=== PATIENT | male | born 1955 | race Caucasian/White ===

== ENCOUNTER 2017-12-13 07:12 | Observation (INO) | payer OTHER ==
[2017-12-12 10:50] LABS: BASOPHILS # (AUTO) 0.1 (0.0-0.1); BASOPHILS % 0.8 % (0.0-1.0); EOSINOPHILS # (AUTO) 0.1 (0.0-0.4); HEMATOCRIT 43.6 % (38.2-49.6); HEMOGLOBIN 14.9 g/dL (14.0-18.0); LYMPHOCYTES # (AUTO) 1.6 (1.0-3.2); LYMPHOCYTES % 24.3 % (18.0-39.1); MEAN CORPUSCULAR HEMOGLOBIN 30.4 pg (28-32); MEAN CORPUSCULAR HGB CONC 34.2 g/dL (31-35); MONOCYTES # (AUTO) 0.7 (0.2-0.8); MONOCYTES % 10.7 % (4.4-11.3); NEUTROPHILS % 61.9 % (38.7-80.0); PLATELET COUNT 183 x10e3/uL (140-360); RED CELL DISTRIBUTION WIDTH 11.8 % (11.7-14.4)
[2017-12-12 11:01] LABS: INR 1.08; PROTHROMBIN TIME 13.2 seconds (11.9-14.5)
[2017-12-12 11:02] LABS: PARTIAL THROMBOPLASTIN TIME 26.4 seconds (23.8-35.5)
[2017-12-12 11:08] LABS: ANION GAP 12.1 mmol/L (8-16); BLOOD UREA NITROGEN 17 mg/dL (7-26); BUN/CREATININE RATIO 23 (6-25); CALCIUM 9.3 mg/dL (8.4-10.2); CARBON DIOXIDE 25 mmol/L (22-29); CHLORIDE 107 mmol/L (98-107); CREATININE, SERUM 0.75 mg/dL (0.72-1.25); EST GLOMERULAR FILTRATION RATE > 60 ML/MIN (60-); GLUCOSE 105 mg/dL (74-118); POTASSIUM 4.1 mmol/L (3.5-5.1); SODIUM 140 mmol/L (136-145)
--- NOTE | 2017-12-12 12:16 | Diagnostic Imaging Report ---
PROCEDURE: Frontal and lateral views of the chest. COMPARISON: None. INDICATIONS: PREOPERATIVE CHEST XRAY FOR CERVICAL SPINE SURGERY FINDINGS: Lines/tubes: None. Lungs: The lungs are well inflated and clear. There is no evidence of pneumonia or pulmonary edema. Pleura: There is no pleural effusion or pneumothorax. Heart and mediastinum: The heart and the mediastinum are normal. Bones: No acute bony abnormality. IMPRESSION: No acute radiographic abnormality. Dictated by: Frankie Gastelum M.D. on 12/12/2017 at 12:16 Electronically approved by: Frankie Gastelum M.D. on 12/12/2017 at 12:16
[~2017-12-13] VITALS: Ht 167.6 cm; Wt 66.7 kg
[~2017-12-13 07:12] MED LIST: BACITRACIN 50,000 UNIT VIAL ONE; BUPIVACAINE 0.5%/EPI 30 ML SDV INJ ONE; GELATIN SPONGE SZ 100 ONE; THROMBIN FOR SOLN 5,000 UNIT VIAL ONE; [UNRECOGNIZED DRUG - OTHER]
--- OUTSIDE RECORDS SUMMARY | 2017-12-13 07:15 | XMS REPORT ---
Author Author [facility] Address Unknown Phone Unavailable Care Team Providers [place] [employer] Name Role Phone ZEKE CALLEJAS Unavailable Unavailable Problems This patient has no known problems. Allergies, Adverse Reactions, Alerts This patient has no known allergies or adverse reactions. Medications This patient has no known medications. Results Test Description Test Time Test Comments Text Results Atomic Results Result Comments CHEST 2 VIEWS [place] [address] Patient Name: EVELIO ENRIQUE MR # : [id number] : 1955 Age/Sex: 62/M Req #: [id number] Adm Physician: Ordered by: ZEKE CALLEJAS MD Report #: [id number] Location: OR Room/Bed: Procedure: [id number] DX/CHEST 2 VIEWS Exam Date: 12/12/17 Exam Time: 1115 REPORT STATUS: Signed PROCEDURE: Frontal and lateral views of the chest. COMPARISON: None. INDICATIONS: PREOPERATIVE CHEST XRAY FOR CERVICAL SPINE SURGERY FINDINGS: Lines/tubes: None. Lungs : The lungs are well inflated and clear. There is no evidence of pneumonia or pulmonary edema. Pleura: There is no pleural effusion or pneumothorax. Heart and mediastinum: The heart and the mediastinum are normal. Bones: No acute bony abnormality. IMPRESSION: No acute radiographic abnormality. Dictated by: Otilio Lazar M.D. on 2017 at 12:16 Electronically approved by: Otilio Lazar M.D. on 2017 at 12:16 Dictated By: OTILIO LAZAR MD 1216 Transcribed By: MATT on 12/12/17 1216 COPY TO: ZEKE CALLEJAS MD
[2017-12-13] MEDS ORDERED: CEFAZOLIN SOD 1 GM VIAL ONE (08:00)
[2017-12-13] MEDS ORDERED: METAMUCIL POWD174 GM PO (08:06)
[2017-12-13] MEDS: LACTATED RINGER'S 1,000 ML IV SCH ×2 (11:37→19:57)
[2017-12-13] MEDS ORDERED: ACETAMINOPHEN 325 MG TAB PO PRN (11:45)
[2017-12-13] MEDS ORDERED: CEPACOL SORE THROAT LOZENGES PO PRN (11:45)
[2017-12-13] MEDS ORDERED: HYDROMORPHONE 2MG/ML INJ IV PRN (11:45)
[2017-12-13] MEDS ORDERED: MAGNESIUM/ALUMINUM/SIMETHICONE 30 ML UDC PO PRN (11:45)
[2017-12-13] MEDS ORDERED: ONDANSETRON HCL INJ 2 MG/ML VIAL IV PRN (11:45)
[2017-12-13] MEDS ORDERED: MORPHINE SULFATE 5 MG/ML VIAL IM PRN (11:45)
[2017-12-13] MEDS ORDERED: ZOLPIDEM TARTRATE 5 MG TAB PO PRN (11:45)
[2017-12-13] MEDS ORDERED: PROMETHAZINE HCL (IM) 25 MG/ML VIAL IM PRN (11:45)
[2017-12-13] MEDS ORDERED: FENTANYL CITRATE/PF 100MCG/2 ML INJ ONE ×2 (11:53→18:54)
[2017-12-13 12:36] VITALS: BP 156/76
[2017-12-13 12:57] VITALS: BP 156/76
[2017-12-13] MEDS: CARISOPRODOL 350 MG TAB PO PRN ×2 (13:06→21:37)
[2017-12-13] MEDS ORDERED: CEFAZOLIN SOD 1 GM/NS 50ML 50 ML IV SCH (14:00)
--- NOTE | 2017-12-13 14:33 | Operative Report ---
DATE OF PROCEDURE: December 13, 2017 PREOPERATIVE DIAGNOSIS: C5-6 spondylosis with myelopathy, M47.12. POSTOPERATIVE DIAGNOSIS: C5-6 spondylosis with myelopathy, M47.12. PROCEDURE: 1. C5-6 anterior cervical diskectomy and microsurgical osteophyte resection and allograft fusion, 66412. 2. Preparation of [employer] cortical cancellous allograft, 97594. 3. C5-6 anterior cervical plating with Synthes Zero-Profile Natural plate, 94531. ANESTHESIA: General. INDICATIONS: The patient is a 62-year-old man who presents with C5-6 spondylosis and severe spinal stenosis and myelopathy and was taken to the operating room for anterior cervical decompression and fusion. PROCEDURE: After the induction of general anesthesia, the patient was placed on the operating table in supine position. The right side of the neck was prepped and draped in sterile fashion. The fluoroscopic C-arm was positioned in cross-table lateral orientation. A transverse incision was created on the right side of the neck, superimposed on the C5-6 disk space as determined by fluoroscopy. The platysma was divided in line with the incision. A subplatysmal dissection was carried out. An avascular plane of dissection was developed medial to the sternocleidomastoid muscle and was followed medial to the carotid sheath to the anterior border of the vertebral bodies. The attachments of longus coli muscles to the anterior lateral aspects of vertebral bodies of C5 and C6 were divided. The anterior longitudinal ligament was resected. [place] posts were inserted into C5 and C6, and the [place] distractor was used to distract the disk space. The anterior annuli of the disks were incised with a number 11 blade, and the contents of the disk were thoroughly evacuated with angled curets and pituitary rongeurs. The posterior osteophytes were meticulously drilled with a 2 mm cutting bur on a high-speed drill until they were completely removed. The posterior annulus of the disk, herniated disk material, and the posterior longitudinal ligament were resected layer by layer until the dura was fully exposed and decompressed. The medial aspects of the uncinate processes were resected bilaterally to further expose any compressed origins of the corresponding nerve roots. After satisfactory decompression had been achieved, the endplates were prepared for fusion. A piece of MTF cortical cancellous allograft was cut to the size and shape of the disk space, and the disk space was sized and found to be 8 mm in height. A piece of MTF cortical cancellous allograft measuring 8 mm in thickness was selected and prepared in saline and loaded onto a Synthes ZPN plate. The construct was inserted into the C5-6 disk space under lateral fluoroscopic guidance and tamped in place until the anterior margin of the plate was flush with the anterior margin of vertebral bodies. The plate was then screwed to the endplates of C5 and C6 with 2 pairs of 14 mm screws. All screws were locked. An excellent construct was obtained. The wound was copiously irrigated with Bacitracin solution. Meticulous hemostasis was secured. The retractor was removed. The platysma was closed with 3-0 Vicryl sutures. The skin was closed with 4-0 Monocryl sutures in subcuticular fashion. Steri-Strips and a dressing were applied. The patient was awakened, extubated and taken to the postanesthesia care unit in stable condition. No intraoperative complications were encountered. Estimated blood loss was 10 mL. Job#: [id number] MARGARITA
[2017-12-13] MEDS: OXYCODONE/ACETAMINOPHEN 5-325 1 EACH TABLET PO PRN ×2 (15:25→21:37)
[2017-12-13 16:34] VITALS: BP 142/77
[2017-12-13] MEDS: CEFAZOLIN SOD 1 GM VIAL IV SCH (16:44)
[2017-12-13] MEDS ORDERED: CEFAZOLIN SOD 1 GM VIAL IV SCH (17:00)
[2017-12-13] MEDS ORDERED: NEOSTIGMINE 5 MG/5ML SYR ONE (18:33)
[2017-12-13] MEDS ORDERED: GLYCOPYRROLATE INJ 1MG/ 5 ML SYR ONE (18:33)
[2017-12-13] MEDS ORDERED: DEXAMETHASONE SOD PHOS INJ 4 MG/ML VIAL ONE (18:33)
[2017-12-13] MEDS ORDERED: ROCURONIUM BROMIDE 10 MG/ML 5ML VIAL ONE (18:33)
[2017-12-13] MEDS ORDERED: ONDANSETRON HCL INJ 2 MG/ML VIAL ONE (18:33)
[2017-12-13] MEDS ORDERED: PROPOFOL IV EMULSION 10 MG/ML 20 ML VIAL ONE (18:33)
[2017-12-13] MEDS ORDERED: ACETAMINOPHEN 1000 MG/100 ML IV ONE (18:33)
[2017-12-13] MEDS ORDERED: SEVOFLURANE INHAL SOLN 250 ML PEN BTL ONE (18:33)
[2017-12-13] MEDS ORDERED: LIDOCAINE HCL 2% LOCAL INJ 5 ML SDV VIAL INJ ONE (18:33)
[2017-12-13] MEDS ORDERED: MIDAZOLAM HCL 2 MG/2 ML VIAL ONE (18:54)
[2017-12-13 20:00] VITALS: BP 125/63
[2017-12-14] VITALS: BP 121/63
[2017-12-14] MEDS: OXYCODONE/ACETAMINOPHEN 5-325 1 EACH TABLET PO PRN ×2 (01:20→05:45)
[2017-12-14] MEDS: CARISOPRODOL 350 MG TAB PO PRN (01:20)
[2017-12-14] MEDS: CEFAZOLIN SOD 1 GM VIAL IV SCH ×2 (01:20→09:00)
[2017-12-14 04:00] VITALS: BP 133/61
[2017-12-14] MEDS: LACTATED RINGER'S 1,000 ML IV SCH (04:17)
--- NOTE | 2017-12-14 06:40 | Diagnostic Imaging Report ---
C-SPINE 2 VIEWS AP LATERAL Comparison: None Clinical history: Status post surgery Findings: Status post C5-6 integrated intervertebral device for cervical fusion. Inferior posterior endplate of C5 is irregular, presumably postsurgical. Moderate C6-7 degenerative changes. Straightening of the normal cervical lordosis with 1 to 2 mm retrolisthesis of C4. Mild prevertebral and neck soft tissue swelling and gas. Impression: Postsurgical changes status post C5-6 fusion, as above. Signed by: Dr Nancy Montgomery MD on 12/14/2017 6:37 AM
[2017-12-14 08:08] VITALS: BP 133/61
[2017-12-14 08:29] VITALS: BP 125/68
== END 2017-12-14 09:26 | disposition home or self-care (01) ==
LOC: OR 07:12 → IMCU 12:51
PROVIDERS: ADMIT Neurological Surgery; ATTEND Neurological Surgery
DX: M47.12 Other spondylosis with myelopathy, cervical region (principal)
CPT/HCPCS: 20931; 22551; 22845; 36415; 71046; 72040; 77003; 80048; 85025; 85610; 85730; 86850; 86900; 88304; 93005; C1713 ×2; C9359; G0378 ×2; J0690 ×2; J1100; J2001; J2250; J2270; J2405

== ENCOUNTER → 2018-01-08 | Outpatient (CLI) | payer OTHER ==
[~2018-01-08] MED LIST changes: -BACITRACIN 50,000 UNIT VIAL ONE; -BUPIVACAINE 0.5%/EPI 30 ML SDV INJ ONE; -GELATIN SPONGE SZ 100 ONE; +METAMUCIL POWD174 GM PO; -THROMBIN FOR SOLN 5,000 UNIT VIAL ONE
--- NOTE | 2018-01-08 10:40 | Diagnostic Imaging Report ---
PROCEDURE: C-SPINE AP AND LAT WITH FLEX AND EXT COMPARISON: Patients [facility], DX, C-SPINE 2 VIEWS AP \T\ LATERAL, 12/14/2017, 6:18. INDICATIONS: POST CERVICAL SPINE SURGERY FINDINGS: C1 through C7 are visualized on the lateral view. Mild reversal of the cervical lordosis may be related muscle spasm or positioning. The patient is status post anterior fusion of C5-C6 with metallic disc spacer present. Postsurgical changes of the inferior C5 endplate. Degenerative changes at C6-C7 are stable. Flexion and extension views demonstrate no change in alignment. The prevertebral soft tissues are not swollen. CONCLUSION: Fusion of C5-C6 without evidence of subluxation. Jose Sosa D.O. Dictated by: Jose Sosa D.O. on 01/08/2018 at 10:39 Electronically approved by: Jose Sosa D.O. on 01/08/2018 at 10:39
== END ==
LOC: RAD 07:52
PROVIDERS: ATTEND Neurological Surgery
DX: M50.20 Other cervical disc displacement, unspecified cervical region (principal); Z98.1 Arthrodesis status
CPT/HCPCS: 72050

== ENCOUNTER 2018-06-18 12:28 | Observation (INO) | payer OTHER ==
[~2018-06-18] VITALS: Ht 172.7 cm; Wt 67.2 kg
[2018-06-18] MEDS ORDERED: KETOROLAC TROMETHAMINE 30 MG/ML VIAL IV STA (12:30)
[2018-06-18] MEDS ORDERED: SODIUM CHLORIDE 0.9% 1000ML 1,000 ML IV STA (12:30)
[2018-06-18] MEDS ORDERED: MORPHINE SULFATE INJ 4 MG/ML INJ IV STA (12:30)
[2018-06-18] MEDS ORDERED: ONDANSETRON HCL INJ 2 MG/ML VIAL IV STA (12:30)
[2018-06-18 14:07] LABS: BASOPHILS # (AUTO) 0.1 (0.0-0.1); BASOPHILS % 0.8 % (0.0-1.0); EOSINOPHILS % 0.4 % (0.0-6.0); HEMATOCRIT 37.5 % (38.2-49.6); HEMOGLOBIN 13.3 g/dL (14.0-18.0); LYMPHOCYTES # (AUTO) 1.1 (1.0-3.2); LYMPHOCYTES % 13.4 % (18.0-39.1); MEAN CORPUSCULAR HEMOGLOBIN 30.4 pg (28-32); MEAN CORPUSCULAR HGB CONC 35.5 g/dL (31-35); MEAN CORPUSCULAR VOLUME 85.8 fL (81-99); MONOCYTES # (AUTO) 0.7 (0.2-0.8); MONOCYTES % 8.6 % (4.4-11.3); NEUTROPHILS # (AUTO) 6.5 (2.1-6.9); NEUTROPHILS % 76.4 % (38.7-80.0); PLATELET COUNT 192 x10e3/uL (140-360); RED BLOOD COUNT 4.37 x10e6/uL (4.3-5.7); RED CELL DISTRIBUTION WIDTH 11.6 % (11.7-14.4)
--- NOTE | 2018-06-18 14:26 | Diagnostic Imaging Report ---
EXAM: CT Abdomen and Pelvis WITHOUT contrast INDICATION: Right flank pain. Kidney stone. COMPARISON: None. TECHNIQUE: Abdomen and pelvis were scanned utilizing a multidetector helical scanner from the lung base to the pubic symphysis without administration of IV contrast. Absence of intravenous contrast decreases sensitivity for detection of focal lesions and vascular pathology. Coronal and sagittal reformations were obtained. Routine protocol was performed. IV CONTRAST: None. ORAL CONTRAST: Water RADIATION DOSE: Total DLP: 584.57 mGy*cm Estimated effective dose: (DLP x 0.015 x size factor) mSv COMPLICATIONS: None FINDINGS: LINES and TUBES: None. LOWER THORAX: Ill-defined groundglass densities in the left lower lung could be due to a resolving pneumonia. HEPATOBILIARY: No focal hepatic lesions. No biliary ductal dilation. GALLBLADDER: No radio-opaque stones or sludge. No wall thickening. SPLEEN: Calcified granuloma in the spleen. PANCREAS: No focal masses or ductal dilatation. ADRENALS: No adrenal nodules KIDNEYS/URETERS: 7 mm obstructing stone in the proximal right ureter with proximal right hydroureter and hydronephrosis. There is right-sided perinephric fat stranding consistent with obstruction. No left renal stones are seen. No cystic or solid mass lesions. GI TRACT: No abnormal distention, wall thickening, or evidence of bowel obstruction. Scattered diverticulosis without evidence of diverticulitis. PELVIC ORGANS/BLADDER: Unremarkable. LYMPH NODES: No lymphadenopathy. VESSELS: Scattered vascular calcification. PERITONEUM / RETROPERITONEUM: No free air or fluid. BONES: Unremarkable. SOFT TISSUES: Unremarkable. IMPRESSION: 1. 7 mm obstructing stone in the proximal right ureter with proximal right hydroureter and hydronephrosis. There is right-sided perinephric fat stranding consistent with obstruction. No left renal stones are seen. Signed by: Dr. Pardeep Jimenez M.D. on 06/18/2018 2:23 PM
[2018-06-18 14:29] LABS: ALANINE AMINOTRANSFERASE 19 IU/L (0-55); ALBUMIN 3.7 g/dL (3.5-5.0); ALBUMIN/GLOBULIN RATIO 1.3 (0.8-2.0); ALKALINE PHOSPHATASE 73 IU/L (40-150); ANION GAP 12.6 mmol/L (8-16); BLOOD UREA NITROGEN 20 mg/dL (7-26); BUN/CREATININE RATIO 24 (6-25); CALCIUM 8.7 mg/dL (8.4-10.2); CARBON DIOXIDE 21 mmol/L (22-29); CHLORIDE 110 mmol/L (98-107); CREATININE, SERUM 0.84 mg/dL (0.72-1.25); EST GLOMERULAR FILTRATION RATE > 60 ML/MIN (60-); GLUCOSE 107 mg/dL (74-118); LIPASE 19 U/L (8-78); POTASSIUM 3.6 mmol/L (3.5-5.1); SODIUM 140 mmol/L (136-145)
[2018-06-18] MEDS ORDERED: MORPHINE SULFATE 2 MG/ML SYR IV PRN (15:15)
[2018-06-18] MEDS ORDERED: ONDANSETRON HCL INJ 2 MG/ML VIAL IV PRN (15:15)
[2018-06-18] MEDS: CEFTRIAXONE SOD 1 GM VIAL IV SCH (16:01)
[2018-06-18 17:39] VITALS: BP 147/67
[2018-06-18] MEDS: SODIUM CHLORIDE 0.9% 1000ML 1,000 ML IV SCH ×2 (17:40→23:14)
--- NOTE | 2018-06-18 17:50 | Consultation ---
DATE OF CONSULTATION: June 18, 2018 UROLOGY CONSULTATION REFERRING PHYSICIAN: Consultation was called by Dr. Perry in the emergency room. CHIEF UROLOGIC COMPLAINT/REASON FOR CONSULTATION: Kidney stone. HISTORY OF PRESENT ILLNESS: Mr. Landry is a very pleasant 63-year-old male admitted into the hospital with acute sharp severe right-sided flank pain. He denied having previous pain like this, denied dysuria, denied gross hematuria. Denied fevers, no chills. PAST MEDICAL HISTORY: Notable for back surgery, BPH. MEDICATIONS: Please see MAR. ALLERGIES: NKDA. SOCIAL HISTORY: Denied smoking or drinking. FAMILY HISTORY: Denied urologic stones. No malignancies. REVIEW OF SYSTEMS: Noncontributory other than problems mentioned above for 12 organ systems. PHYSICAL EXAMINATION: GENERAL: An elderly male in no acute distress. VITAL SIGNS: Currently afebrile with all stable vital signs. HEENT: Sclerae anicteric. NECK: Supple. BACK: Without costovertebral tenderness bilaterally. ABDOMEN: Soft. It is nontender. It is nondistended. Without palpable masses, no palpable hernias, no palpable inguinal lymphadenopathy. GENITOURINARY: Normal male external genitalia. EXTREMITIES: No edema. NEUROLOGIC: Moves extremities. PSYCHIATRIC: Alert. Mood appropriate. SKIN: Intact. Normal color. PERTINENT LABORATORY DATA AND DIAGNOSTICS: CT scan revealing a 7 mm right UPJ stone, right hydronephrosis, perinephric stranding. Hemoglobin 13, hematocrit 37, platelet count 192,000, white cell count 8000. Sodium 141, potassium 3.6, chloride 110, bicarb 21, BUN 20, creatinine 0.84, glucose 107. IMPRESSION: 1. Right ureteral calculus. 2. Right renal colic. 3. Hydronephrosis. 4. Benign prostatic hypertrophy. PLAN: Will employ a brief trial of passage. She he fail this one, deploy lithotripsy. I had an extensive discussion with the patient about any alternatives of stenting or not. He does not wish to undergo a stent unless he absolutely needs it. Thank you for allowing me to participate in the care of your patient. We will be happy to follow along with you. Job#: [id number] EV cc:MD ADRIANNE JONES MD DR. LIU IN THE EMERGENCY ROOM
[2018-06-18 18:06] VITALS: BP 147/67
--- NOTE | 2018-06-18 19:59 | History and Physical ---
CLINICAL HISTORY: This is a 63-year-old white man seen in the emergency center at [facility] because of acute right ureteral stone causing right hydronephrosis. This patient has no previous nephrolithiasis history. He has no other significant medical problems except for reflux esophagitis, status post recent upper endoscopy. He presented with right flank pain approximately 4 months ago. He had similar episodes, but was mild, lasting only an hour and a half, spontaneously resolved. He did not seek any medical attention. This is a 2nd attack, but this time the pain was rather severe. He came to the emergency room. Workup showed the above stone measuring [address] Mccabe, the urologist, was called. Recommended hospitalization for pain relieved and possible procedure to remove the stone. PAST MEDICAL HISTORY: Remarkable for gastroesophageal reflux status post recent endoscopy. SOCIAL HISTORY: There is a history of occasional alcohol use. He denied a cigarette usage. He works in the [place] for [employer]. FAMILY HISTORY: Father had Alzheimer, at age 56. Mother had urethral cancer. PAST SURGICAL HISTORY: Included right neck bone spur surgery. REVIEW OF SYSTEMS: Noncontributory. PHYSICAL EXAMINATION GENERAL: He is alert, coherent. VITAL SIGNS: Stable. CARDIOVASCULAR: Jugular veins were not distended. S1, S2 were regular. There were no appreciable murmurs. RESPIRATORY: Clear. ABDOMEN: Soft. Bowel sounds are present. EXTREMITIES: Show no cyanosis, clubbing or edema. LABORATORY STUDIES: Please refer to the chart. IMPRESSION 1. Right nephrolithiasis with right hydronephrosis with right ureteral obstruction. 2. History of gastroesophageal reflux. RECOMMENDATIONS: GI and consultations. Thank you very much. Job#: [id number] cc:MD SANKET LI MD
[2018-06-18 20:00] VITALS: BP 150/72
[2018-06-18 20:01] VITALS: BP 150/72
[2018-06-18 20:31] LABS: BILIRUBIN,URINE NEGATIVE (NEGATIVE); CLARITY,URINE SL CLOUDY (CLEAR); COLOR,URINE YELLOW (YELLOW); KETONES,URINE TRACE (NEGATIVE); LEUKOCYTE ESTERASE ,URINE NEGATIVE (NEGATIVE); NITRITE,URINE NEGATIVE (NEGATIVE); PROTEIN,URINE DIPSTICK TRACE (NEGATIVE); URINE UROBILINOGEN 1 mg/dL (0.2 - 1)
[2018-06-19] VITALS (8 sets, daily range): BP systolic 104–153; BP diastolic 51–82
[2018-06-19] MEDS: SODIUM CHLORIDE 0.9% 1000ML 1,000 ML IV SCH ×2 (01:29→09:00)
[2018-06-19 05:32] LABS: BASOPHILS # (AUTO) 0.1 (0.0-0.1); BASOPHILS % 1.2 % (0.0-1.0); EOSINOPHILS # (AUTO) 0.1 (0.0-0.4); EOSINOPHILS % 2.3 % (0.0-6.0); HEMATOCRIT 33.6 % (38.2-49.6); HEMOGLOBIN 11.6 g/dL (14.0-18.0); LYMPHOCYTES # (AUTO) 1.5 (1.0-3.2); LYMPHOCYTES % 29.1 % (18.0-39.1); MEAN CORPUSCULAR HEMOGLOBIN 30.2 pg (28-32); MEAN CORPUSCULAR HGB CONC 34.5 g/dL (31-35); MEAN CORPUSCULAR VOLUME 87.5 fL (81-99); MONOCYTES # (AUTO) 0.5 (0.2-0.8); MONOCYTES % 9.6 % (4.4-11.3); NEUTROPHILS # (AUTO) 2.9 (2.1-6.9); NEUTROPHILS % 57.2 % (38.7-80.0); PLATELET COUNT 155 x10e3/uL (140-360); RED BLOOD COUNT 3.84 x10e6/uL (4.3-5.7); RED CELL DISTRIBUTION WIDTH 12.1 % (11.7-14.4)
[2018-06-19 05:58] LABS: ALANINE AMINOTRANSFERASE 16 IU/L (0-55); ALBUMIN/GLOBULIN RATIO 1.3 (0.8-2.0); ALKALINE PHOSPHATASE 64 IU/L (40-150); ANION GAP 11.8 mmol/L (8-16); BLOOD UREA NITROGEN 19 mg/dL (7-26); BUN/CREATININE RATIO 25 (6-25); CALCIUM 8.1 mg/dL (8.4-10.2); CARBON DIOXIDE 21 mmol/L (22-29); CHLORIDE 112 mmol/L (98-107); CREATININE, SERUM 0.77 mg/dL (0.72-1.25); EST GLOMERULAR FILTRATION RATE > 60 ML/MIN (60-); GLUCOSE 105 mg/dL (74-118); POTASSIUM 3.8 mmol/L (3.5-5.1); SODIUM 141 mmol/L (136-145)
[2018-06-19] MEDS ORDERED: ONDANSETRON HCL INJ 2 MG/ML VIAL ONE (14:54)
[2018-06-19] MEDS ORDERED: MIDAZOLAM HCL 2 MG/2 ML VIAL ONE (14:54)
[2018-06-19] MEDS ORDERED: FENTANYL CITRATE/PF 100MCG/2 ML INJ ONE (14:54)
[2018-06-19] MEDS ORDERED: SEVOFLURANE INHAL SOLN 250 ML PEN BTL ONE (14:54)
[2018-06-19] MEDS ORDERED: LIDOCAINE HCL 2% LOCAL INJ 5 ML SDV VIAL INJ ONE (14:54)
[2018-06-19] MEDS ORDERED: DEXAMETHASONE SOD PHOS INJ 4 MG/ML VIAL ONE (14:54)
[2018-06-19] MEDS ORDERED: PROPOFOL IV EMULSION 10 MG/ML 20 ML VIAL ONE (14:54)
[2018-06-19] MEDS: CEFTRIAXONE SOD 1 GM VIAL IV SCH (15:02)
[2018-06-20] VITALS: BP 138/65
[2018-06-20] MEDS: SODIUM CHLORIDE 0.9% 1000ML 1,000 ML IV SCH (00:18)
[2018-06-20] MEDS ORDERED: FLOMAX0.4 MG PO (00:33)
[2018-06-20] MEDS ORDERED: TYLENOL WITH C1 EACH PO (00:33)
[2018-06-20 04:00] VITALS: BP 138/62
[2018-06-20 08:00] VITALS: BP 137/70
[2018-06-20 08:23] VITALS: BP 137/70
--- NOTE | 2018-06-20 08:57 | Operative Report ---
DATE OF PROCEDURE: June 19, 2018 PREOPERATIVE DIAGNOSIS: Right ureteral calculus. POSTOPERATIVE DIAGNOSIS: Right ureteral calculus. PROCEDURES PERFORMED: 1. Staged right-sided shockwave lithotripsy, right side. 2. Supervision of fluoroscopy. ANESTHESIA: General. ESTIMATED BLOOD LOSS: Minimal. COMPLICATIONS: None. INDICATIONS: Mr. Landry is a very pleasant, 63-year-old male admitted to the hospital with acute, sharp, severe right-sided flank pain. He was found to have very large, 7 mm wide by at least 1 mL long kidney stone on CT scan. He and I had a long discussion regarding the alternatives, risks and benefits, including doing nothing, shock-wave lithotripsy, ureteroscopy, percutaneous surgery and stent placement. The patient wished to avoid stent placement. He voiced an understanding of the options, the alternatives, and the risks and benefits, minimally invasive approach and lower risk profile. The patient elected to proceed with a shockwave lithotripsy. He voiced understanding of the options and elected to proceed. PROCEDURE IN DETAIL: After informed consent was obtained, the patient was taken to the operative suite and placed supine on the operating table. The patient underwent anesthesia by the anesthesia service.. A time out was taken and the site was confirmed. The patient was on prophylactic antibiotics. Attention was turned toward the right ureteral stone. The stone was localized in the X, Y and Z planes. Total of 2500 shocks delivered to the stone with increasing intensity in a standard fashion with a machine. The patient tolerated the procedure well. Good fragmentation was seen. He was transported to the recovery room in excellent condition. noted. SUPERVISION OF FLUOROSCOPY: I was present for the entire procedure and supervised the fluoroscopy for treatment part. Job#: [id number]
--- NOTE | 2018-06-20 15:58 | Discharge Summary ---
CLINICAL HISTORY: This is a 63-year-old white man admitted via the emergency room on 06/18/2018 because of right hydronephrosis obstructed by a stone with severe pain. Please refer to my previous dictation concerning details of current illness, past medical history, personal and social history family history, review of systems, physical examination and initial laboratory studies. HOSPITAL COURSE: The patient was treated with analgesics failing to improve. He was taken to surgery where stone was extracted by Dr. Sanket Allan, urology. Dr. Allan felt the patient can be discharged and he will be followed for the outpatient basis in 1 week. DISCHARGE MEDICATIONS: Flomax. Tylenol No. 3. Metamucil. FOLLOWUP INSTRUCTIONS: He will see Dr. Allan and Dr. Hampton in one week. DISCHARGE DIAGNOSES: The same as on admission. YEIMY BRADFORD MD Job#: [id number] cc:ADRIANNE HAMPTON MD cc:SANKET ALLAN MD
== END 2018-06-20 10:45 | disposition home or self-care (01) ==
LOC: ER 12:28 → INTOOBSV 15:38 → ERHOLD 15:38 → MED/SURG 17:19
PROVIDERS: ADMIT Internal Medicine Cardiovascular Disease; ATTEND Internal Medicine Cardiovascular Disease
DX: N13.2 Hydronephrosis with renal and ureteral calculous obstruction (principal); K21.0 Gastro-esophageal reflux disease with esophagitis; Z80.59 Family history of malignant neoplasm of other urinary tract organ; N40.0 Benign prostatic hyperplasia without lower urinary tract symptoms
CPT/HCPCS: 36415 ×2; 50590; 74176; 80053 ×2; 81001; 83690; 85025 ×2; 87086; 99284; G0378 ×3; J0696 ×2; J1100; J1885; J2001; J2250; J2270; J2405 ×2; J7030 ×3

== ENCOUNTER → 2018-07-05 | Outpatient (CLI) | payer OTHER ==
[~2018-07-05] MED LIST changes: +AMPICILLIN SODIU1 GM IV; +FLOMAX0.4 MG PO; +LUMIGAN2.5 M1 OP; +OMEPRAZOLE40 MG; +TYLENOL WITH C1 EACH PO; +antibiotic PO
--- NOTE | 2018-07-05 07:13 | Diagnostic Imaging Report ---
PROCEDURE:C-SPINE AP AND LAT WITH FLEX AND EXT COMPARISON:01/08/2018. INDICATIONS:CERVICAL SPINE FUSION FINDINGS: The cervical spine is visualized from the skull base to T2 on the lateral radiograph. No acute, displaced fracture or subluxation. Stable orthopedic hardware related to anterior fusion and disc spacer placement at C5-6. Expected interval progression of sclerotic changes of the C5 and 6 vertebral bodies. Milder degenerative disc changes at C6-7, stable compared to the prior examination. Flexion and extension radiographs show no evidence of positional spondylolisthesis. Prevertebral soft tissues are of normal thickness. Atlantoaxial interval is within normal limits. CONCLUSION: Stable postsurgical changes at C5-6 without evidence of inducible malalignment. Dictated by: Angel Brown M.D. on 07/05/2018 at 7:21 Electronically approved by: Angel Brown M.D. on 07/05/2018 at 7:21
== END ==
LOC: RAD 06:30
PROVIDERS: ATTEND Neurological Surgery
DX: M50.20 Other cervical disc displacement, unspecified cervical region (principal); Z98.1 Arthrodesis status
CPT/HCPCS: 72050

== ENCOUNTER → 2018-07-26 | Outpatient (CLI) | payer OTHER ==
--- NOTE | 2018-07-26 07:52 | Diagnostic Imaging Report ---
Abdomen, 2 views dated 07/26/2018. History: Right ureteral stone. Comparison: CT scan of the abdomen and pelvis dated 06/18/2018 Findings: The intestinal gas pattern is nonobstructive. Large amount of fecal material overlying the abdomen is present. Calcification within the spleen is noted. Previously described right ureteral stone not readily apparent on this study. Right pelvic calcification likely is a phlebolith and was noted as well as prostate calcification on the prior CT. There no masses or abnormal calcifications. The osseous structures are intact. IMPRESSION: No acute abdominal abnormality. Signed by: Dr. Jose Sosa DO on 07/26/2018 7:49 AM
== END ==
LOC: RAD 05:45
PROVIDERS: ATTEND Urology
DX: N20.0 Calculus of kidney (principal)
CPT/HCPCS: 74018

== ENCOUNTER 2018-07-27 23:31 | Inpatient (IN) | payer OTHER ==
[~2018-07-27] VITALS: Ht 172.7 cm; Wt 64.7 kg
[~2018-07-27 23:31] MED LIST changes: -AMPICILLIN SODIU1 GM IV; -LUMIGAN2.5 M1 OP; -OMEPRAZOLE40 MG; -antibiotic PO
[2018-07-27] MEDS ORDERED: KETOROLAC TROMETHAMINE 30 MG/ML VIAL IV STA (23:49)
[2018-07-27] MEDS ORDERED: ONDANSETRON HCL INJ 2 MG/ML VIAL IV STA (23:49)
[2018-07-28] VITALS (7 sets, daily range): BP systolic 108–154; BP diastolic 52–64
[2018-07-28 00:25] LABS: BASOPHILS # (AUTO) 0.1 (0.0-0.1); BASOPHILS % 0.6 % (0.0-1.0); EOSINOPHILS % 0.2 % (0.0-6.0); HEMATOCRIT 41.8 % (38.2-49.6); LYMPHOCYTES # (AUTO) 1.3 (1.0-3.2); LYMPHOCYTES % 10.3 % (18.0-39.1); MEAN CORPUSCULAR HEMOGLOBIN 30.7 pg (28-32); MEAN CORPUSCULAR HGB CONC 35.9 g/dL (31-35); MEAN CORPUSCULAR VOLUME 85.5 fL (81-99); MONOCYTES # (AUTO) 0.7 (0.2-0.8); MONOCYTES % 5.7 % (4.4-11.3); NEUTROPHILS # (AUTO) 10.5 (2.1-6.9); NEUTROPHILS % 82.7 % (38.7-80.0); PLATELET COUNT 219 x10e3/uL (140-360); RED BLOOD COUNT 4.89 x10e6/uL (4.3-5.7); RED CELL DISTRIBUTION WIDTH 11.7 % (11.7-14.4)
[2018-07-28 00:38] LABS: CLARITY,URINE CLOUDY (CLEAR); COLOR,URINE YELLOW (YELLOW)
[2018-07-28 00:39] LABS: BILIRUBIN,URINE NEGATIVE (NEGATIVE); KETONES,URINE 2+ (NEGATIVE); LEUKOCYTE ESTERASE ,URINE NEGATIVE (NEGATIVE); NITRITE,URINE NEGATIVE (NEGATIVE); PROTEIN,URINE DIPSTICK TRACE (NEGATIVE); URINE UROBILINOGEN 0.2 mg/dL (0.2 - 1)
[2018-07-28 00:41] LABS: ALANINE AMINOTRANSFERASE 21 IU/L (0-55); ALBUMIN/GLOBULIN RATIO 1.3 (0.8-2.0); ALKALINE PHOSPHATASE 78 IU/L (40-150); ANION GAP 13.8 mmol/L (8-16); BLOOD UREA NITROGEN 19 mg/dL (7-26); BUN/CREATININE RATIO 18 (6-25); CARBON DIOXIDE 23 mmol/L (22-29); CHLORIDE 104 mmol/L (98-107); CREATININE, SERUM 1.03 mg/dL (0.72-1.25); EST GLOMERULAR FILTRATION RATE > 60 ML/MIN (60-); GLUCOSE 140 mg/dL (74-118); POTASSIUM 3.8 mmol/L (3.5-5.1); SODIUM 137 mmol/L (136-145)
[2018-07-28] MEDS ORDERED: HYDROMORPHONE 1MG/1ML INJ IV STA (00:47)
[2018-07-28 00:51] LABS: BACTERIA,URINE MANY /HPF; EPITHELIAL CELLS,URINE RARE /LPF; RBC,URINE >50 /HPF (0-5); WBC,URINE (MAN) 0-5 /HPF (0-5)
[2018-07-28] MEDS ORDERED: HYDROMORPHONE 2MG/ML 2 MG/ML ML ONE (00:51)
[2018-07-28 00:56] LABS: CALCIUM 9.6 mg/dL (8.4-10.2)
--- NOTE | 2018-07-28 01:09 | Diagnostic Imaging Report ---
EXAM: CT Abdomen and Pelvis WITHOUT contrast INDICATION: Right flank pain. COMPARISON: CT 06/18/2018 TECHNIQUE: Abdomen and pelvis were scanned utilizing a multidetector helical scanner from the lung base to the pubic symphysis without administration of IV contrast. Absence of intravenous contrast decreases sensitivity for detection of focal lesions and vascular pathology. Coronal and sagittal reformations were obtained. Routine protocol was performed. IV CONTRAST: None ORAL CONTRAST: Water COMPLICATIONS: None RADIATION DOSE: Total DLP: 235.5 mGy*cm Estimated effective dose: (DLP x 0.015 x size factor) mSv CTDIvol has been reviewed. It is below the limits set by the Radiation Protocol Committee (RPC). Dose modulation, iterative reconstruction, and/or weight based adjustment of the mA/kV was utilized to reduce the radiation dose to as low as reasonably achievable. FINDINGS: LINES and TUBES: None. LOWER THORAX: Unremarkable HEPATOBILIARY: No focal hepatic lesions. No biliary ductal dilation. GALLBLADDER: No radio-opaque stones or sludge. No wall thickening. SPLEEN: No splenomegaly. Calcified granuloma. PANCREAS: No focal masses or ductal dilatation. ADRENALS: No adrenal nodules KIDNEYS/URETERS: Severe right hydroureteronephrosis with associated perinephric and periureteral stranding secondary to a 0.4 cm stone at the ureterovesicular junction (series 3 image 126). A second 0.4 cm stone is seen in the bladder, possibly within the ureteral orifice. Previously, a 0.7 cm calcification was seen at the proximal ureter on 06/18/2018 without additional nonobstructing renal calculi. The lack of additional stones in the right kidney on the previous CT may suggest that the current stones represent fragmentation of the previous larger sized stone. No left hydronephrosis. No left renal stones. No cystic or solid mass lesions. GI TRACT: No abnormal distention, wall thickening, or evidence of bowel obstruction. Duodenal stranding likely secondary to right renal findings. There are diverticula within the colon without evidence of diverticulitis. Appendix is normal. PELVIC ORGANS/BLADDER: Prosthetic calcifications. See above regarding calculus. LYMPH NODES: No lymphadenopathy. VESSELS: Diffuse atherosclerotic calcifications. Abdominal aorta is normal diameter. PERITONEUM / RETROPERITONEUM: No free air or fluid. BONES: There are degenerative changes in the lumbar spine. SOFT TISSUES: Unremarkable. IMPRESSION: Severe right hydroureteronephrosis with findings suggestive of fragmentation of the previous single stone into two smaller stones and migration from the proximal right ureter into the vesicoureteral junction and ureteral orifice. Signed by: DR. Frank Du MD on 07/28/2018 1:06 AM
[2018-07-28] MEDS ORDERED: SODIUM CHLORIDE 0.9% 50ML 50 ML ONE (01:48)
[2018-07-28] MEDS: CEFTRIAXONE SOD 1 GM VIAL IV SCH (01:52)
[2018-07-28] MEDS: SODIUM CHLORIDE 0.9% 1000ML 1,000 ML IV SCH ×3 (01:58→22:15)
[2018-07-28] MEDS ORDERED: ONDANSETRON HCL INJ 2 MG/ML VIAL IV PRN (02:00)
[2018-07-28] MEDS ORDERED: HYDROMORPHONE 1MG/1ML INJ IV PRN (02:00)
[2018-07-28] MEDS ORDERED: LUMIGAN2.5 M1 OP (02:50)
[2018-07-28] MEDS: HYDROMORPHONE 2MG/ML 2 MG/ML ML IV PRN (10:00)
--- NOTE | 2018-07-28 12:40 | Diagnostic Imaging Report ---
EXAM: Abdomen 2 Views INDICATION: ^FOLLOW UP STONES AND COMPARE TO CT. ^[id number] ^1145 COMPARISON: CT of the same date FINDINGS: See impression. IMPRESSION: Nonobstructive bowel gas pattern. No signs of pneumoperitoneum. No calcification overlying renal shadows. Questionable 5 mm pelvic calcification, could represent ureterovesical or bladder calcification, seen on prior CT. Signed by: Dr. Adalberto Rosario MD on 07/28/2018 12:37 PM
[2018-07-28] MEDS ORDERED: ACETAMINOPHEN/CODEINE 300MG - 30MG TAB PO PRN (15:15)
[2018-07-28] MEDS: TAMSULOSIN HCL 0.4 MG CAP PO SCH (16:58)
[2018-07-28] MEDS: BIMATOPROST(OPTH) 2.5 ML BOTTLE OP SCH (16:59)
--- NOTE | 2018-07-28 19:09 | History and Physical ---
CLINICAL HISTORY: This is a 63-year-old man, known to me from previous evaluation, a patient of Dr. Adrianne Hampton's and Dr. Allan's, admitted via the emergency room because of recurrent right flank pain with right hydronephrosis. This patient was hospitalized on 06/18/2018 because of the same. At that time, urologic procedure was carried out reportedly removing the stone. The patient was found to be stable for discharge and was sent home, followed with Dr. Allan and Dr. Hampton. He did well for approximately a month and on the night of admission developed severe pain. He talked it off for several hours at home, eventually decided to come to the emergency room around midnight whereupon CT scan showed fractured stone in [address] causing recurrent right hydronephrosis. The patient is being admitted for pain control and for further urological procedure. PAST MEDICAL HISTORY: Remarkable for gastroesophageal reflux, benign prostatic hypertrophy. He is status post recent endoscopy. PERSONAL AND SOCIAL HISTORY: Used alcohol occasionally. Denies cigarette usage. Used to work in [employer] for a [employer]. FAMILY HISTORY: Father had Alzheimer's, at age 56. Mother had urethral cancer. PAST SURGICAL HISTORY: Included previously urologic procedure on the right side in June by Dr. Allan as well as the right neck spine surgery for bone spurs. REVIEW OF SYSTEMS: Noncontributory. PHYSICAL EXAMINATION VITAL SIGNS: Stable. CARDIOVASCULAR: Jugular veins are not distended. S1, S2 were regular. There is no appreciable murmur. LUNGS: Clear. ABDOMEN: Soft. Bowel sounds are present. EXTREMITIES: No cyanosis, clubbing, or edema. LABORATORY STUDIES: CT scan and chest x-ray as mentioned. The EKG is not available. White count 12,700, hemoglobin 15, and platelet count 219,000. Electrolytes are normal. Urinalysis was cloudy with 2+ ketone, 2+ blood, greater than 50 rbc's, leukocyte esterase negative, white count was only 0 to 5, bacteria are many. IMPRESSION 1. Recurrent right hydronephrosis due to nephrolithiasis, not completely extracted from the last admission for the same on June of 2018. 2. Urinary tract infection. 3. Benign prostatic hypertrophy. 4. History of reflux esophagitis. RECOMMENDATIONS: consultation. Intravenous antibiotics. Job#: [id number] CHRISTINA cc:DR. ADRIANNE ALLAN
--- NOTE | 2018-07-28 20:42 | Diagnostic Imaging Report ---
EXAM: ABDOMEN-1VIEW (KUB) DATE: 07/28/2018 8:00 PM INDICATION: Follow-up kidney stones COMPARISON: KUB 07/28/2018 at 11:44 AM, and CT 07/28/2018, KUB 07/26/2018 FINDINGS: LINES/TUBES: None BOWEL PATTERN: No evidence for obstruction. SOFT TISSUES: Punctate calcification overlying the right pelvis likely represents one of the two stones on the prior CT, either within the ureteral orifice or ureterovesicular junction. This calcification appears to have moved more medially from 07/26/2018 suggesting a stone rather than a phlebolith. LUNG BASES: Not included BONES: No acute findings. IMPRESSION: Punctate calcification overlying the right pelvis likely represents one of the two stones seen on prior CT. Signed by: DR. Frank Du MD on 07/28/2018 8:38 PM
[2018-07-29] VITALS (8 sets, daily range): BP systolic 110–164; BP diastolic 55–91
[2018-07-29] MEDS: CEFTRIAXONE SOD 1 GM VIAL IV SCH (01:45)
[2018-07-29 05:40] LABS: BASOPHILS % 0.4 % (0.0-1.0); EOSINOPHILS % 0.4 % (0.0-6.0); HEMATOCRIT 35.6 % (38.2-49.6); HEMOGLOBIN 12.2 g/dL (14.0-18.0); LYMPHOCYTES % 11.4 % (18.0-39.1); MEAN CORPUSCULAR HGB CONC 34.3 g/dL (31-35); MEAN CORPUSCULAR VOLUME 87.7 fL (81-99); MONOCYTES # (AUTO) 0.8 (0.2-0.8); MONOCYTES % 8.7 % (4.4-11.3); NEUTROPHILS # (AUTO) 7.2 (2.1-6.9); NEUTROPHILS % 78.6 % (38.7-80.0); PLATELET COUNT 156 x10e3/uL (140-360); RED BLOOD COUNT 4.06 x10e6/uL (4.3-5.7); RED CELL DISTRIBUTION WIDTH 11.9 % (11.7-14.4)
[2018-07-29 06:32] LABS: ALANINE AMINOTRANSFERASE 13 IU/L (0-55); ALBUMIN 2.9 g/dL (3.5-5.0); ALBUMIN/GLOBULIN RATIO 1.1 (0.8-2.0); ALKALINE PHOSPHATASE 61 IU/L (40-150); ANION GAP 9.7 mmol/L (8-16); BLOOD UREA NITROGEN 14 mg/dL (7-26); BUN/CREATININE RATIO 13 (6-25); CALCIUM 8.3 mg/dL (8.4-10.2); CARBON DIOXIDE 22 mmol/L (22-29); CHLORIDE 109 mmol/L (98-107); CREATININE, SERUM 1.04 mg/dL (0.72-1.25); EST GLOMERULAR FILTRATION RATE > 60 ML/MIN (60-); GLUCOSE 108 mg/dL (74-118); POTASSIUM 3.7 mmol/L (3.5-5.1); SODIUM 137 mmol/L (136-145)
[2018-07-29] MEDS: BIMATOPROST(OPTH) 2.5 ML BOTTLE OP SCH ×2 (09:29→17:55)
[2018-07-29] MEDS ORDERED: MAGNESIUM HYDROXIDE 30 ML UDC PO NR (11:30)
[2018-07-29] MEDS: HYDROMORPHONE 2MG/ML 2 MG/ML ML IV PRN (12:10)
[2018-07-29] MEDS: TAMSULOSIN HCL 0.4 MG CAP PO SCH (17:55)
[2018-07-29] MEDS: SODIUM CHLORIDE 0.9% 1000ML 1,000 ML IV SCH (18:40)
[2018-07-29] MEDS ORDERED: CITRATE OF MAGNESIA 300ML BOTTLE PO ONE (18:45)
[2018-07-29] MEDS ORDERED: BISACODYL 5 MG TAB EC PO ONE (20:00)
[2018-07-30] VITALS (7 sets, daily range): BP systolic 119–162; BP diastolic 61–85
[2018-07-30] MEDS: CEFTRIAXONE SOD 1 GM VIAL IV SCH (01:53)
[2018-07-30] MEDS: SODIUM CHLORIDE 0.9% 1000ML 1,000 ML IV SCH ×2 (05:03→15:45)
[2018-07-30] MEDS ORDERED: BISACODYL 10 MG SUPP PR ONE (06:00)
[2018-07-30] MEDS ORDERED: IOPAMIDOL 300MG/ML 100 ML INFUS..BTL IV ONE (08:45)
[2018-07-30] MEDS: BIMATOPROST(OPTH) 2.5 ML BOTTLE OP SCH ×2 (09:33→17:23)
--- NOTE | 2018-07-30 14:40 | Diagnostic Imaging Report ---
PROCEDURE:INTRAVENOUS PYELOGRAM (IVP) COMPARISON:Patients [facility], CT, CT ABDOMEN/PELVIS WO, 07/28/2018, 0:27. 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 Multiple frontal and bilateral oblique images of the abdomen and pelvis were obtained with and without compression. Post-void images were obtained. 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 Prompt left renal excretion of contrast. Left calyxes and left renal pelvis are normal without dilation or filling defects. Right delayed nephrogram and delayed excretion of contrast. Marked right hydronephrosis. Ureters: Left ureter shows normal caliber without irregularity or filling defect. Marked right hydroureter, with narrow caliber transition at the level of the previously described calculus. Bladder: No focal lesions. Small postvoid residual. CONCLUSION: 1. Right delayed nephrogram with marked right hydronephrosis and hydroureter secondary to 3-4 mm obstructing calculus in the distal right ureter with, unchanged since CT dated 07/28/2018. Jay Henderson M.D. Dictated by: Jay Henderson M.D. on 07/30/2018 at 14:49 Electronically approved by: Jay Henderson M.D. on 07/30/2018 at 14:49
[2018-07-30] MEDS: TAMSULOSIN HCL 0.4 MG CAP PO SCH (16:37)
[2018-07-31 00:15] VITALS: BP 153/85
[2018-07-31] MEDS: SODIUM CHLORIDE 0.9% 1000ML 1,000 ML IV SCH ×3 (02:16→21:52)
[2018-07-31] MEDS: CEFTRIAXONE SOD 1 GM VIAL IV SCH (02:35)
[2018-07-31 04:00] VITALS: BP 134/76
[2018-07-31 08:03] VITALS: BP 149/72
[2018-07-31] MEDS: BIMATOPROST(OPTH) 2.5 ML BOTTLE OP SCH ×2 (09:00→17:00)
[2018-07-31] MEDS ORDERED: MAGNESIUM HYDROXIDE 30 ML UDC PO PRN (10:30)
[2018-07-31] MEDS ORDERED: LEVOFLOXACIN 250MG/D5W 50ML 50 ML IV SCH (11:00)
[2018-07-31] MEDS ORDERED: AMPICILLIN SOD 1 GM/NS 50ML 50 ML IV SCH (12:00)
[2018-07-31 12:11] VITALS: BP 145/69
[2018-07-31] MEDS ORDERED: IOPAMIDOL 610MG/1ML 300 MG/ML VIAL IV ONE (14:29)
[2018-07-31] MEDS ORDERED: LEVOFLOXACIN 500MG/D5W 100ML 100 ML IV ONE (14:34)
--- NOTE | 2018-07-31 15:26 | Operative Report ---
DATE OF PROCEDURE: July 31, 2018 PREOPERATIVE DIAGNOSIS: Right-sided hydronephrosis. POSTOPERATIVE DIAGNOSIS: Right-sided hydronephrosis. PROCEDURES 1. Cystourethroscopy with right stent placement. 2. Supervision of fluoroscopy. 3. Interpretation of retrograde pyelography. ANESTHESIA: General. ESTIMATED BLOOD LOSS: Minimal. COMPLICATIONS: None. INDICATIONS FOR PROCEDURE: Mr. Landry is a 63-year-old male with a history of lithotripsy, now presenting with failure of 4-mm fragment passing. He voiced an understanding of the options, the alternatives, and the risks and benefits. Due to infection, we will place an indwelling stent. PROCEDURE IN DETAIL: Informed consent was obtained. The patient was taken to the operative suite and underwent general anesthesia by the anesthesia service. He was placed in the dorsal lithotomy position. He was sterilely prepped and draped in the standard fashion for cystoscopy. He had been given culture-specific antibiotic. A 21-[place] cystoscope was inserted per urethra. A normal urethra was noted. Panendoscopy of the bladder revealed no stones and no tumors. Both ureteral orifices were in their normal anatomic location and position. The right ureteral orifice was catheterized with a 5-[place]izen [place] open-ended catheter. Retrograde pyelogram revealed a 4 x 4 mm distal ureteral calculus with proximal hydronephrosis. With a moderate degree of difficulty, a guidewire was inserted. A ureteral stent was deployed with a coil in the renal pelvis and a coil in the bladder. The patient's bladder was drained. He was awakened from anesthesia and transported to the recovery room in excellent condition. SUPERVISION OF FLUOROSCOPY AND INTERPRETATION OF RETROGRADE PYELOGRAPHY: I was present throughout the entire procedure and supervised the use of fluoroscopy. There was no radiologist present. Attention was turned toward the right ureteral orifice, which was catheterized with a 5-[place], open-ended catheter. A retrograde pyelogram was performed revealing a 4-mm distal ureteral calculus and proximal hydronephrosis. The stent was in good position. Job#: [id number]
[2018-07-31 16:25] VITALS: BP 140/71
[2018-07-31] MEDS: TAMSULOSIN HCL 0.4 MG CAP PO SCH (16:55)
[2018-07-31] MEDS ORDERED: DEXAMETHASONE SOD PHOS INJ 4 MG/ML VIAL ONE (17:13)
[2018-07-31] MEDS ORDERED: SEVOFLURANE INHAL SOLN 250 ML PEN BTL ONE (17:13)
[2018-07-31] MEDS ORDERED: LIDOCAINE HCL 2% LOCAL INJ 5 ML SDV VIAL INJ ONE (17:13)
[2018-07-31] MEDS ORDERED: PROPOFOL IV EMULSION 10 MG/ML 20 ML VIAL ONE (17:13)
[2018-07-31] MEDS ORDERED: ONDANSETRON HCL INJ 2 MG/ML VIAL ONE (17:13)
[2018-07-31] MEDS ORDERED: FENTANYL CITRATE/PF 100MCG/2 ML INJ ONE (17:31)
[2018-07-31] MEDS ORDERED: MIDAZOLAM HCL 2 MG/2 ML VIAL ONE (17:31)
[2018-07-31 20:00] VITALS: BP 145/73
[2018-07-31] MEDS: AMPICILLIN SOD 1 GM/NS 50ML 50 ML IV SCH (20:35)
[2018-08-01] VITALS: BP 134/73
[2018-08-01] MEDS: AMPICILLIN SOD 1 GM/NS 50ML 50 ML IV SCH ×2 (02:11→09:53)
[2018-08-01 04:00] VITALS: BP 115/66
[2018-08-01] MEDS: SODIUM CHLORIDE 0.9% 1000ML 1,000 ML IV SCH (06:24)
[2018-08-01 07:53] VITALS: BP 149/85
[2018-08-01] MEDS: BIMATOPROST(OPTH) 2.5 ML BOTTLE OP SCH (09:00)
[2018-08-01] MEDS ORDERED: AMPICILLIN SODIU1 GM IV (11:21)
[2018-08-01 11:58] VITALS: BP 118/77
[2018-08-01 12:01] VITALS: BP 154/83
--- NOTE | 2018-08-01 12:21 | Discharge Summary ---
CLINICAL HISTORY: This is a 63-year-old man, a patient of Dr. Adrianne Hampton and Dr. Kiko Mccabe, admitted via the emergency room because of recurrent right hydronephrosis with nephrolithiasis and urinary tract infection. Please refer to my previous dictation concerning details of current illness, past medical history, personal and social history, family history, review of systems, physical examination and initial laboratory studies. HOSPITAL COURSE: The patient was treated with intravenous antibiotics, IV fluids and analgesics. He was able to pass one-half of the stone, but there remained the obstruction and not improving. The patient was still having pain. Dr. Mccabe decided to perform repeat urological procedure with cysto and stenting of the right ureter under fluoroscopy and retrograde pyelography. The patient tolerated the procedure well. He is discharged on ampicillin 500 mg p.o. t.i.d. and his previous home medications. The culture on this patient has shown Enterococcus faecalis, which was pansensitive including penicillin. His white count decreased from 12,000 to 9,000. He is to follow with Dr. Mccabe and Dr. Hampton in 1 week. DISCHARGE DIAGNOSIS: Same as on admission. YEIMY BRADFORD MD Job#: [id number] cc:MD ADRIANNE LAN MD
[2018-08-14] MEDS ORDERED: OMEPRAZOLE40 MG (08:19)
[2018-08-16] MEDS ORDERED: antibiotic PO (07:04)
== END 2018-08-01 13:17 | disposition home or self-care (01) | DRG 661 ==
LOC: ER 23:31 → ERHOLD 07-28 01:52 → IMCU 07-28 02:09 → MED/SURG3 07-28 21:12
PROVIDERS: ADMIT Internal Medicine Cardiovascular Disease; ATTEND Internal Medicine Cardiovascular Disease
PROC: BT141ZZ Fluoroscopy of Kidneys, Ureters and Bladder using Low Osmolar Contrast (ICD-10-PCS; 2018-07-31)
PROC: 0T768DZ Dilation of Right Ureter with Intraluminal Device, Via Natural or Artificial Opening Endoscopic (ICD-10-PCS; principal; 2018-07-31 12:30)
DX: N13.2 Hydronephrosis with renal and ureteral calculous obstruction (principal); N39.0 Urinary tract infection, site not specified; B95.2 Enterococcus as the cause of diseases classified elsewhere; N40.0 Benign prostatic hyperplasia without lower urinary tract symptoms; K21.0 Gastro-esophageal reflux disease with esophagitis; F41.9 Anxiety disorder, unspecified; K59.00 Constipation, unspecified
CPT/HCPCS: 36415; 74018; 74176; 74400; 74420; 80053; 81001; 85025; 87086; 87186; 88300; 96374; 96375; 96376; 99284; C1874; J0290; J0696; J1100; J1885; J1956; J2001; J2250; J2405; J7030; Q9967

== ENCOUNTER → 2018-08-16 | Day surgery (SDC) | payer OTHER ==
[~2018-08-16] MED LIST changes: +AMPICILLIN SODIU1 GM IV; +DEXAMETHASONE SOD PHOS INJ 4 MG/ML VIAL ONE; +IOPAMIDOL 610MG/1ML 300 MG/ML VIAL IV ONE; +LEVOFLOXACIN 500MG/D5W 100ML 100 ML IV ONE; +LIDOCAINE HCL 2% LOCAL INJ 5 ML SDV VIAL INJ ONE; +LUMIGAN2.5 M1 OP; +MIDAZOLAM HCL 2 MG/2 ML VIAL ONE; +OMEPRAZOLE40 MG; +ONDANSETRON HCL INJ 2 MG/ML VIAL ONE; +PROPOFOL IV EMULSION 10 MG/ML 20 ML VIAL ONE; +SEVOFLURANE INHAL SOLN 250 ML PEN BTL ONE; +antibiotic PO
[2018-08-16 10:05] VITALS: BP 136/70
--- NOTE | 2018-08-18 03:12 | Operative Report ---
DATE OF PROCEDURE: August 16, 2018 PREOPERATIVE DIAGNOSES 1. Indwelling right ureteral stent. 2. Right ureteral calculus. POSTOPERATIVE DIAGNOSES 1. Indwelling right ureteral stent. 2. Right ureteral calculus. PROCEDURES 1. Cystourethroscopy with staged removal of a right indwelling stent (entirely separate stage procedure after lithotripsy). 2. Staged right-sided ureteroscopy with laser lithotripsy (entirely stage procedure to rid the patient of right ureteral calculus). 3. Staged right-sided ureteroscopy with stone extraction (entirely separate procedure for the explicit purposes of sending the stone for analysis not required for laser lithotripsy). 4. Supervision of fluoroscopy for ureteroscopy and stent removal portion. 5. Interpretation of retrograde pyelography. ANESTHESIA: General. ESTIMATED BLOOD LOSS: Minimal. COMPLICATIONS: None. INDICATIONS FOR PROCEDURE: Mr. Landry is a 63-year-old male, who had lithotripsy, now with significant [place], now presenting for staged removal of stones and stent. He voiced understanding of the options, alternatives, risks, and benefits and he elected to proceed. PROCEDURE IN DETAIL: Informed consent was obtained. The patient was taken to the operative suite and underwent general anesthesia by the anesthesia service. He was placed in the dorsal lithotomy position. He was sterilely prepped and draped in the standard fashion for cystoscopy. A 22.5-[place] cystoscope was inserted per urethra and a normal urethra was noted. Panendoscopy revealed no tumors and no stones. A stent was seen extruding from the right ureteral orifice, it was grasped and removed intact. Guidewire was inserted. The ureteroscope was advanced to the level of the stone. Utilizing a 365-micron laser fiber, the stone was obliterated into multiple small fragments. Basket was then utilized to extract fragments and passed off the table as specimen. The ureteroscope was re-advanced. Retrograde pyelogram was performed revealing no other obstructing stones. Safety wire was removed. The bladder was drained. The patient was awakened from anesthesia, and transported to the recovery room in excellent condition. SUPERVISION OF FLUOROSCOPY, INTERPRETATION OF RETROGRADE URETERAL PYELOGRAPHY: I was present throughout the entire procedure and I supervised the use of fluoroscopy as no radiologist was present. Attention was turned toward the right ureter. It was catheterized with the ureteroscope. Retrograde pyelogram was performed revealing delicate ureteral and calyceal systems. No evidence of filling defects, iNTERIM REMOVAL OF stent. Job#: [id number] ROSEMARY RAM
== END | disposition home or self-care (01) ==
LOC: OR 06:11
PROVIDERS: ATTEND Urology
DX: N20.1 Calculus of ureter (principal); N40.1 Benign prostatic hyperplasia with lower urinary tract symptoms; N13.8 Other obstructive and reflux uropathy; N13.39 Other hydronephrosis; E29.1 Testicular hypofunction; N52.9 Male erectile dysfunction, unspecified; Z46.6 Encounter for fitting and adjustment of urinary device; K21.9 Gastro-esophageal reflux disease without esophagitis; R00.1 Bradycardia, unspecified; I10 Essential (primary) hypertension; Z01.810 Encounter for preprocedural cardiovascular examination
CPT/HCPCS: 52353; 74420; 88300; 93005; J1100; J1956; J2001; J2250; J2405; J2704; Q9967

== ENCOUNTER → 2018-12-06 | Outpatient (CLI) | payer OTHER ==
[~2018-12-06] MED LIST changes: -DEXAMETHASONE SOD PHOS INJ 4 MG/ML VIAL ONE; -IOPAMIDOL 610MG/1ML 300 MG/ML VIAL IV ONE; -LEVOFLOXACIN 500MG/D5W 100ML 100 ML IV ONE; -LIDOCAINE HCL 2% LOCAL INJ 5 ML SDV VIAL INJ ONE; -MIDAZOLAM HCL 2 MG/2 ML VIAL ONE; -ONDANSETRON HCL INJ 2 MG/ML VIAL ONE; -PROPOFOL IV EMULSION 10 MG/ML 20 ML VIAL ONE; -SEVOFLURANE INHAL SOLN 250 ML PEN BTL ONE
--- NOTE | 2018-12-06 16:02 | Diagnostic Imaging Report ---
EXAM: KUB-2 views INDICATION: Renal stone. COMPARISON: KUB 07/28/[address] abdomen/pelvis 07/27/2018. Retrograde pyelogram 07/31/2018. FINDINGS: Bowel gas partially obscures visualization of the right kidney. No evidence of of stone overlying the expected course of the kidneys or bilateral ureters. The previously noted right UVJ calcification may have migrated, and a 3 mm calcification overlies the midline bladder. Nonobstructive bowel gas pattern. IMPRESSION: No evidence of stone overlying the kidneys or bilateral ureters, although evaluation of the right kidney is limited due to overlying bowel gas. The previously noted right UVJ calcification may have migrated, and a 3 mm calcification overlies the midline bladder. Signed by: Dr. Shaye Mart MD on 12/06/2018 3:59 PM
== END ==
LOC: RAD 15:13
PROVIDERS: ATTEND Urology
DX: N20.0 Calculus of kidney (principal)
CPT/HCPCS: 74018